=== PATIENT | male | born 1980 ===

== ENCOUNTER 2018-06-21 10:53 | Emergency (ER) | payer OTHER ==
[~2018-06-21] VITALS: Ht 175.3 cm; Wt 97.5 kg
[~2018-06-21 10:53] MED LIST: HYDROCHLOROTHIAZ1 GM
== END 2018-06-21 14:09 | disposition home or self-care (01) ==
LOC: ER 10:53
DX: I16.0 Hypertensive urgency (principal); I10 Essential (primary) hypertension

== ENCOUNTER 2020-08-21 12:41 | Emergency (ER) | payer OTHER ==
[~2020-08-21] VITALS: Ht 175.3 cm; Wt 90.7 kg
[2020-08-21] MEDS ORDERED: AMLODIPINE-OLM1 EAC3 (13:13)
== END 2020-08-21 16:41 ==
LOC: ER 12:41
DX: B34.9 Viral infection, unspecified (principal); Z03.818 Encounter for observation for suspected exposure to other biological agents ruled out